=== PATIENT | male | born 1970 | race Caucasian/White ===

== ENCOUNTER 2016-12-19 18:18 | Emergency (ER) | payer OTHER ==
[~2016-12-19] VITALS: Ht 165.1 cm; Wt 59.0 kg
[2016-12-19] MEDS ORDERED: OMEPRAZOLE40 M1 ORAL (18:31)
--- NOTE | 2016-12-19 18:33 | Emergency Room Report ---
History of Present Illness General Chief Complaint: To Be Triaged Present Illness HPI 45 y/o male c/o left calf pain x 5 days. States he just arrived to [place] on a flight from [place] when he started having left calf pain. States that he feels a trae inside his calf and that he has taken NSAIDs w/ some improvement but is now worried he may have developed a blood clot. States he has no hx of medical problems or A. Fib and states he only takes omeprazole for GERD. No other modifying factors. Denies any SOB, CP, cyanosis, numbness, or LENORE. Allergies: Coded Allergies: No Known Allergies (Unverified , 12/19/16) Patient History Limited by: language barrier Past Medical History: see triage record Past Surgical History: none Pertinent Family History: none Reviewed Nursing Documentation: PMH: Agreed, PSxH: Agreed Review of Systems All Other Systems: negative except mentioned in HPI Physical Exam Sp02 EP Interpretation: reviewed, normal General Appearance: no apparent distress, alert, GCS 15, non-toxic Head: normocephalic, atraumatic Eyes: bilateral eye normal inspection ENT: normal ENT inspection Neck: full range of motion, supple/symm/no masses Respiratory: chest non-tender, lungs clear, normal breath sounds, speaking full sentences Cardiovascular #1: regular rate, rhythm, no edema, no murmur, normal capillary refill Musculoskeletal: back normal, gait/station normal, normal range of motion, calf tenderness, other - palpable tender non fluctulent non indurated soft tissue mass left calf Neurologic: alert, oriented x3, responsive, motor strength/tone normal, sensory intact, speech normal Psychiatric: judgement/insight normal, memory normal, mood/affect normal, no suicidal/homicidal ideation Skin: normal color, no rash, warm/dry, well hydrated Lymphatic: no adenopathy Medical Decision Making PA Attestation Dr. Gutierrez is my supervising physician with whom patient management has been discussed with. Diagnostic Impression: Primary Impression: Muscle spasm of left calf Additional Impression: Pain of left calf ER Course Pt. presents to the ED c/o left calf pain s/p international flight Ddx considered but are not limited to DVT, superficial thrombophlebitis, muscle cramp, venous insufficiency, cellulitis, popliteal aneurysm, maher's cyst, vitamin def. Vital signs: are WNL, pt. is afebrile H&PE are most consistent with muscle cramp of left leg ORDERS: Venous Doppler of Lower Extremity ED INTERVENTIONS: none required at this time. DISCHARGE: At this time pt. is stable for d/c to home. Will provide printed patient care instructions, and any necessary prescriptions. Care plan and follow up instructions have been discussed with the patient prior to discharge. Chest X-Ray Diagnostic Results Chest X-Ray Ordered: No CT/MRI/US Diagnostic Results CT/MRI/US Diagnostic Results : Imaging Test Ordered: Venous Doppler Left Calf Impression No DVT, venous insufficiency or superficial thrombus Disposition: HOME, SELF-CARE Condition: Stable Scripts Naproxen* (NAPROXEN*) 500 Mg Tablet.dr 500 MG ORAL TWICE A DAY for 10 Days, #20 TAB Prov: ODALYS MUHAMMAD 12/19/16 Patient Instructions: Muscle Cramps and Spasms Additional Instructions: Take medication as directed. Advise patient to use RICE therapy and avoid exercises for the next 2-3 weeks to help rest the leg. Patient instructed to massage the muscles that are tight or tense, put ice for 5-7 minutes or a frozen bag of peas or cold gel pack on the area for 20 minutes at a time, a few times a day, put heat on the area to reduce pain and stiffness by either taking a hot shower or hot bath, or put a hot towel on the area for no more than 20 minutes at a time. Patient instructed to not use anything too hot that could burn your skin. ODALYS MUHAMMAD Dec 19, 2016 18:33
[2016-12-19 18:41] VITALS: BP 130/89
[2016-12-19] MEDS ORDERED: NAPROXEN500 M1 ORAL (19:15)
[2016-12-19 19:20] VITALS: BP 130/89
== END 2016-12-19 19:20 | disposition home or self-care (01) ==
LOC: EMR 18:49
DX: M62.831 Muscle spasm of calf (principal); M79.605 Pain in left leg; K21.9 Gastro-esophageal reflux disease without esophagitis
CPT/HCPCS: 93971; 99284